=== PATIENT | male | born 1980 | race African-American/Black ===

== ENCOUNTER 2024-08-05 12:20 | Emergency (ER) | payer BC ==
[~2024-08-05] VITALS: Ht 175.3 cm; Wt 94.0 kg
[2024-08-05 12:30] VITALS: O2SAT 98
[2024-08-05 13:31] LABS: CLARITY URINE CLEAR (CLEAR); COLOR URINE YELLOW (YELLOW); GLUCOSE URINE NEGATIVE (NEGATIVE); KETONES URINE NEGATIVE (NEGATIVE); LEUKOCYTE ESTERASE URINE NEGATIVE (NEGATIVE); NITRITE URINE NEGATIVE (NEGATIVE); OCCULT BLOOD URINE NEGATIVE (NEGATIVE); PH URINE 7.5 (4.5-8.0); PROTEIN URINE NEGATIVE (NEGATIVE); SPECIFIC GRAVITY URINE 1.019 (1.005-1.030)
[2024-08-05 17:19] VITALS: BP 133/84; PULSE 87; RESP 16; TEMP 36.83628
== END 2024-08-05 17:19 | disposition home or self-care (01) ==
LOC: ER 12:20 → EDSEX 12:20 → ER 17:19
DX: N43.3 Hydrocele, unspecified (principal); N50.811 Right testicular pain
CPT/HCPCS: 76870; 81003; 93976; 99284